=== PATIENT | female | born 1995 ===

== ENCOUNTER 2020-06-29 02:05 | Inpatient (IN) | payer OTHER ==
[~2020-06-29] VITALS: Ht 157.5 cm; Wt 90.3 kg
[2020-06-29] MEDS ORDERED: VITAFOL-OB+DHA1 EACH PO (02:53)
--- NOTE | 2020-06-29 10:23 | NUR ---
06/29/20 1023 Lalita Oscar 1009: PT ARRIVES TO PACU FROM [facility]. SHE IS RESPONSIVE TO STIMULUS. SHE IS REPORTING SOME PAIN BUT UNABLE TO GIVE A NUMBER. HANDS AND DIAL INSPECTOR GIVES DILAUDID.
--- NOTE | 2020-06-30 09:35 | PR ---
[facility] [address] [facility] [place], [place] [address] Signed PP Progress Notes Datetime Report Generated by CPIndira: 06/30/2020 09:35 SUBJECTIVE: [id number] Pain: Within Normal Limits Nausea/Vomiting: Denies Flatus: Yes Bowel Movement: No Vital Signs: [id number] Vital Signs: Reviewed; Within Normal Limits Cardiovascular: Normal Respiratory: Normal Abdomen/Uterus: Abnormal Lochia: Normal Vulva/Perineum: Not Done Breasts: Not Done CVA Tenderness: Not Done Extremities: Normal Incision: Normal Progress: Normal Exam Comments: Abdomen with active BS. Fundus firm, NT @ U-2. H/H 10.9/33.6, WBC 21.9, plat 210k IMPRESSION/PLAN/PROCEDURES: [id number] Impression: Normal Progression Plan: Continue Present Management Progress Notes: Doing well. Will continue present care. Signing Physician: Shari Barbosa MD Copies: ~ *Electronically Signed* 06/30/20 0935 SHARI BARBOSA MD PATIENT NAME: JENNIFERDORIS GOPAL PROGRESS NOTE DATE OF : [birth year] PHYSICIAN: SHARI BARBOSA MD RPT #: [id number] REPORT IS CONFIDENTIAL AND NOT TO BE RELEASED WITHOUT AUTHORIZATION
--- NOTE | 2020-07-01 08:34 | PR ---
[facility] [address] [facility] [place], [place] [address] Signed PP Progress Notes Datetime Report Generated by CPN: 07/01/2020 08:34 SUBJECTIVE: [id number] Pain: Within Normal Limits Nausea/Vomiting: Denies Flatus: Yes Bowel Movement: No Vital Signs: [id number] Vital Signs: Reviewed; Within Normal Limits Cardiovascular: Not Done Respiratory: Not Done Abdomen/Uterus: Abnormal Lochia: Normal Vulva/Perineum: Not Done Breasts: Not Done CVA Tenderness: Not Done Extremities: Normal Incision: Normal Progress: Normal Exam Comments: Abdomen with active BS. Fundus firm, NT @ U-2. IMPRESSION/PLAN/PROCEDURES: [id number] Impression: Normal Progression Plan: Remove Jacek; Discharge Other Procedures: varicella vaccination Progress Notes: Doing well. She is ready for D/C. Signing Physician: Shari Barbosa MD Copies: ~ *Electronically Signed* 07/01/20833 SHARI BARBOSA MD PATIENT NAME: DORIS RODRIGUEZ PROGRESS NOTE DATE OF : 95 PHYSICIAN: SHARI BARBOSA MD RPT #: [id number] REPORT IS CONFIDENTIAL AND NOT TO BE RELEASED WITHOUT AUTHORIZATION
--- NOTE | 2020-07-02 11:53 | OR ---
[facility] [address] [place], [place] [address] Signed DATE OF OPERATION: 06/29/2020 SURGEON: Shari Barbosa MD COURIER DELIVERY DRIVER: Hoa Harry D.O. PREOPERATIVE DIAGNOSES: 1. Nonreassuring status. 2. Failed vacuum. 3. Term . POSTOPERATIVE DIAGNOSES: 1. Nonreassuring status. 2. Failed vacuum. 3. Term . 4. Delivered. PROCEDURE: Primary section with low segment transverse uterine incision. ANESTHESIA: General. ESTIMATED BLOOD LOSS: 600 mL. DRAINS: Bynum catheter. INDICATIONS AND FINDINGS: The patient is a 25-year-old female, 1, para 0, admitted at 39 and 5/7th weeks, in active labor. She made rapid progress in her labor and began pushing. However, after 2 hours, the baby remained at a +3 station and deep variable decelerations were noted. An attempt was made at vacuum. The baby was +3 and ROP. The baby did not descend significantly and there were 3 pop offs. The decision was made to proceed with emergency section. She was taken to the OR where she was delivered of a little girl via lower segment transverse uterine incision with Apgars of 6/9 and weight of 6 pounds, 14 ounces. The baby was ROP at delivery but the baby was delivered as a breech given the deep station. The uterus, tubes, ovaries and placenta were normal. Electronically Signed By: SHARI BARBOSA MD 07/02/20 1153 PATIENT NAME: DORIS RODRIGUEZ OPERATIVE REPORT DATE OF : 95 REPORT #: [id number] PHYSICIAN: SHARI BARBOSA MD PCP: LUIGI TRAN PA-C REPORT IS CONFIDENTIAL AND NOT TO BE RELEASED WITHOUT AUTHORIZATION [facility] [address] [place], [place] [address] Signed DESCRIPTION OF PROCEDURE: The patient was prepped and draped in the supine position. A Pfannenstiel skin incision was made and the incision was carried through the fascia and extended laterally. The inferior and superior fascial flaps were then created. The muscles were bluntly divided and the peritoneum opened bluntly and the incision extended. The Cedrick retractor was placed. The incision on the uterus was made at the upper aspect of the peritoneal reflection. The baby was delivered with the above findings and handed to the pediatric staff in attendance. The placenta was removed manually. The uterus was explored with a lap tape assuring no remaining fragments. The edges of the incision were identified and the uterus closed in 2 layers using 0-Monocryl. The first layer was a running locking stitch and the second was a vertical imbricating stitch. Cautery was used on the peritoneal edges to control bleeding. The abdomen was then copiously irrigated and inspected and good hemostasis was noted. The retractor was removed. The peritoneum identified. An ACell graft was laid over the lower segment to aid in healing. The peritoneum was then closed with a running suture of 3-0 Vicryl. The muscles were brought together with interrupted sutures of 0-Vicryl. There was bleeding vessel in the right rectus and this was controlled with a [id number] of 0-Vicryl. Other bleeding points were controlled with cautery. This layer was irrigated and good hemostasis was noted. ACell powder was sprinkled over the muscles to aid in healing. The fascia was closed from each angle of the midline with a running suture of 0-Vicryl. The subcu tissue was irrigated, inspected, and bleeding points controlled with cautery. The deep space was closed with interrupted sutures of 3-0 Vicryl. The skin was closed with chris. All sponge and needle counts were correct. She tolerated the procedure well and was taken to the recovery room in good condition. Shari Barbosa MD PJW/MODL /[id number] cc: Hoa Harry DO Copies: HOA HARRY DO Electronically Signed By: SHARI BARBOSA MD 07/02/20 1153 PATIENT NAME: DORIS RODRIGUEZ OPERATIVE REPORT DATE OF : 95 REPORT #: [id number] PHYSICIAN: SHARI BARBOSA MD PCP: LUIGI TRAN PA-C REPORT IS CONFIDENTIAL AND NOT TO BE RELEASED WITHOUT AUTHORIZATION [address] [address] Signed ~ Electronically Signed By: SHARI BARBOSA MD 07/02/20 1153 PATIENT NAME: DORIS RODRIGUEZ GOPAL OPERATIVE REPORT DATE OF : 95 REPORT #: [id number] PHYSICIAN: SHAIR BARBOSA MD PCP: LUIGI TRAN PA-C REPORT IS CONFIDENTIAL AND NOT TO BE RELEASED WITHOUT AUTHORIZATION
== END 2020-07-01 10:05 | disposition home or self-care (01) | DRG 788 ==
LOC: FBCO 02:05 → FBC 04:25
PROVIDERS: ADMIT Obstetrics & Gynecology; ATTEND Obstetrics & Gynecology
PROC: 00HU33Z Insertion of Infusion Device into Spinal Canal, Percutaneous Approach (ICD-10-PCS; 2020-06-29)
PROC: 3E0R3BZ Introduction of Anesthetic Agent into Spinal Canal, Percutaneous Approach (ICD-10-PCS; 2020-06-29)
PROC: 10D00Z1 Extraction of Products of Conception, Low, Open Approach (ICD-10-PCS; principal; 2020-06-29 09:00)
PROC: 3E0234Z Introduction of Serum, Toxoid and Vaccine into Muscle, Percutaneous Approach (ICD-10-PCS; 2020-07-01)
DX: O76 Abnormality in fetal heart rate and rhythm complicating labor and delivery (principal); O66.5 Attempted application of vacuum extractor and forceps; Z3A.39 39 weeks gestation of pregnancy; Z37.0 Single live birth; O32.1XX0 Maternal care for breech presentation, not applicable or unspecified; O99.214 Obesity complicating childbirth; E66.9 Obesity, unspecified; O99.344 Other mental disorders complicating childbirth; F32.9 Major depressive disorder, single episode, unspecified; Z23 Encounter for immunization; Z86.16 Personal history of COVID-19
CPT/HCPCS: 01961; 36415; 59025; 74018; 82803; 85027; 90716; A9270; G0463; J0330; J0456; J1100; J1170; J2250; J2405; J2590; J2704; J3010; J7060; J7121; U0003